=== PATIENT | female | born 1965 | race Caucasian/White ===

== ENCOUNTER 2016-11-24 16:18 | Inpatient (IN) | payer OTHER ==
[~2016-11-24] VITALS: Ht 170.2 cm; Wt 73.5 kg
[~2016-11-24 16:18] MED LIST: BACTO TP; CEPH250C16 PO; CLIN300C2 PO; GABA300C PO; INSU100S22 SUBQ; INSU10SU2 SC; LACT10SO1 PO; SACC250C4 PO; TRAM50TA94 PO
[2016-11-24 17:01] VITALS: BP 148/80
--- NOTE | 2016-11-24 19:15 | NUR ---
PT IS 51/F BIB FRIEND TO ED WITH C/O BLE PITTING EDEMA, REDNESS, PAIN FROM FEET UP TO MID TIB/FIB X 1 WK HYPERGLYCEMIC, POLYDIPSIA, POLYPHAGIA, POLYURIA PT STATES MED HX DM, CIRRHOSIS, FIBROMYALGIA, ARTHRITIS. DENIES N/V/D; SKIN IS PINK/WARM/DRY; AAOX4 WITH EVEN AND STEADY GAIT; LUNGS CLEAR BL; HR EVEN AND REGULAR; PT DENIES ANY FEVER, CP, SOB, OR COUGH AT THIS TIME; PATIENT STATES PAIN OF 8/10 AT THIS TIME; VSS; PATIENT POSITIONED FOR COMFORT; HOB ELEVATED; BEDRAILS UP X2; BED DOWN. ER MD MADE AWARE OF PT STATUS.
[2016-11-24] MEDS ORDERED: NACL 0.9% 1,000 ML IV ONE ×2 (19:23→20:40)
[2016-11-24] MEDS ORDERED: KETOROLAC 30 MG/ML VIAL IVP ONE (19:25)
[2016-11-24] MEDS ORDERED: ONDANSETRON 4 MG/2 ML VIAL IVP ONE (19:25)
[2016-11-24 19:49] LABS: BASOPHILS # (AUTO) 0.1 K/uL (0.00-0.22); BASOPHILS % (AUTO) 2.4 % (0.0-2.0); EOSINOPHILS # (AUTO) 0.2 K/uL (0-0.4); EOSINOPHILS % (AUTO) 5.6 % (0.0-4.0); HEMATOCRIT 35.5 % (36-48); HEMOGLOBIN 11.6 g/dL (12.0-16.0); LYMPHOCYTES # (AUTO) 0.8 K/uL (2.5-16.5); LYMPHOCYTES % (AUTO) 28.7 % (20.5-51.1); MEAN CORPUSCULAR HEMOGLOBIN 33 pg (27-31); MEAN CORPUSCULAR HGB CONC 33 g/dL (33-37); MEAN CORPUSCULAR VOLUME 99 fL (80-94); MONOCYTES # (AUTO) 0.3 K/uL (0.8-1.0); MONOCYTES % (AUTO) 12.1 % (1.7-9.3); NEUTROPHILS # (AUTO) 1.3 K/uL (1.8-7.7); NEUTROPHILS % (AUTO) 51.2 % (42.2-75.2); PLATELET COUNT (AUTO) 93 K/uL (140-450); RED BLOOD CELL COUNT(AUTO) 3.57 MIL/uL (4.20-5.40); RED CELL DISTRIBUTION WIDTH 14.1 % (11.6-13.7); WHITE BLOOD COUNT (AUTO) 2.7 K/uL (4.8-10.8)
[2016-11-24 20:04] LABS: ALBUMIN 2.2 g/dL (3.4-5.0); ANION GAP 11.6 (8-16); CALCIUM 7.7 mg/dL (8.5-10.1); CARBON DIOXIDE 24.8 mmol/L (21-32); CREATININE 0.8 mg/dL (0.6-1.3); POTASSIUM 3.4 mmol/L (3.5-5.1); TOTAL BILIRUBIN 1.1 mg/dL (0.0-1.0); TOTAL PROTEIN, SERUM 7.1 g/dL (6.4-8.2)
[2016-11-24] MEDS ORDERED: MORPHINE SULFATE 4 MG/ML SYR IVP ONE (20:40)
[2016-11-24] MEDS ORDERED: KCL 20 MEQ/WATER INJ PREMIX 100 ML IV ONE (20:40)
[2016-11-24 20:44] LABS: APPEARANCE,URINE CLEAR (CLEAR); BILIRUBIN,URINE NEGATIVE (NEGATIVE); BLOOD, URINE 1+ (NEGATIVE); COLOR,URINE YELLOW (YELLOW); LEUKOCYTE ESTERASE ,URINE NEGATIVE (NEGATIVE); NITRITE, URINE NEGATIVE (NEGATIVE); PH,URINE 5.5 (5.0-9.0); PROTEIN,URINE NEGATIVE (NEGATIVE); UGLUCOSE 3+ (NEGATIVE); UROBILINOGEN,URINE 0.2 EU/dL (0.2 - 1)
[2016-11-24 20:49] LABS: BACTERIA,URINE 1-9 (FEW) /HPF (None Seen); RBC,URINE 3-10 (FEW) /HPF (0-5); SQUAMOUS EPITHELIAL CELL,UR 4-10 (MOD) /LPF (0-3 (FEW))
--- NOTE | 2016-11-24 20:55 | NUR ---
PT HAVING US DONE AT BEDSIDE.
[2016-11-24 21:12] LABS: AMPHETAMINE, URINE NEG. ng/ml (NEG <=1000); BARBITURATE, URINE NEG. ng/ml (NEG <=200); BENZODIAZEPINE, URINE NEG. ng/mL (NEG <=200); CANNABINOID, URINE NEG. ng/mL (NEG <=50); COCAINE, URINE NEG. ng/mL (NEG <=300); OPIATE, URINE NEG. ng/mL (NEG <=2000); PHENCYCLIDINE SCREEN,URINE NEG. ng/mL (NEG <=25)
--- NOTE | 2016-11-24 21:35 | NUR ---
Patient will be admitted to care of DR RODIRGUEZ. Admited to MS. Will go to room 119A. Belongings list completed. Report to VALENTINO LOPEZ.
[2016-11-24] MEDS ORDERED: ONDANSETRON 4 MG/2 ML VIAL IVP PRN (21:40)
[2016-11-24] MEDS ORDERED: MORPHINE SULFATE 2 MG/ML SYR IVP PRN (21:40)
[2016-11-24] MEDS ORDERED: BISACODYL 10 MG SUPP RC PRN (21:40)
[2016-11-24] MEDS ORDERED: cloNIDine 0.1 MG TAB PO PRN (21:40)
[2016-11-24] MEDS ORDERED: ZOLPIDEM 5 MG TAB PO PRN (21:40)
[2016-11-24] MEDS ORDERED: ACETAMINOPHEN 650 MG SUPP RC PRN (21:40)
[2016-11-24] MEDS ORDERED: HYDROcodone/APAP 5/325 MG 1 TAB TAB PO PRN (21:40)
[2016-11-24] MEDS ORDERED: POTASSIUM CHLORIDE 40 MEQ, LIDOCAINE 1% 25 MG in NACL 0.9% 250 ML IV PRN (21:40)
[2016-11-24] MEDS ORDERED: POTASSIUM CHLORIDE 10 MEQ TABER PO PRN (21:40)
[2016-11-24] MEDS ORDERED: MAG SULF 2000 MG/WATER PREMIX 50 ML IV PRN (21:40)
[2016-11-24] MEDS ORDERED: ACETAMINOPHEN 325 MG TAB PO PRN (21:40)
[2016-11-24] MEDS ORDERED: ALUMINUM HYD/MAG/SIMETHICONE 30 ML UDC PO PRN (21:40)
[2016-11-24 22:00] VITALS: BP 156/84
[2016-11-24] MEDS ORDERED: INSULIN LISPRO SLIDING SCALE 100 UNITS/ML VIAL SUBQ PRN (22:00)
[2016-11-24] MEDS ORDERED: DEXTROSE 50% 50 ML SYR IVP PRN (22:00)
--- NOTE | 2016-11-24 22:00 | NUR ---
ADMITTED A 51 Y/O FEMALE FROM ER, VIA [facility] WITH A CHIEF COMPLAINT OF GENERALIZED ABDOMINAL PAIN AND BLE PAIN. RESPIRATION EVEN AND UNLABORED,NO SOB AT THIS TIME. IV ACCESS TO RT AC, GAUGE 18, INFUSING KCL 20MEQ AT 50ML/HR. PT COMPLAINS OF ABDOMINAL PAIN 02/25.WILL MEDICATE ONCE ORDERS VERIFIED. ORIENTED TO CALL LIGHT, BATHROOM, BED, TV, VISITING HOURS. DISCUSSED PLAN OF CARE. PT VERBALIZED UNDERSTANDING. BELONGINGS CHECKED,NO VALUABLES.FALL PRECAUTION IN PLACE. CALL LIGHT WITHIN EASY REACH. WILL CONTINUE TO MONITOR.
--- NOTE | 2016-11-24 22:20 | NUR ---
SPOKE WITH DR. RODRIGUEZ REMINDED TO ORDER CODE STATUS, DIET AND MRSA FOR THIS PT. ORDERED MRSA NARES, NPO EXCEPT MEDS, FULL CODE AND INSTRUCTED THIS AIR AND WATER TESTER TO PUT HIS ORDERS IN THE COMPUTER. REMINDED MD TO ORDER THE CODE STATUS PER PROTOCOL. STATES "OK I WILL ORDER IT TOMORROW, IT'S NOT THAT EMERGENCY." CHARGE NURSE MADE AWARE. ALL OTHER ORDERS NOTED AND CARRIED OUT.
--- NOTE | 2016-11-24 22:25 | NUR ---
SPOKE WITH PATIENT, MADE AWARE OF NPO ORDER. PT GOT UPSET AND STATES SHE'S GOING HOME. PT CLAIMS SHE HASN'T EATEN SINCE THIS MORNING. EXPLAINED TO PATIENT REGARDING IMPORTANCE OF GETTING TREATED MEDICALLY. PT HAS AGREED TO STAY AND REQUESTS TO HAVE SOMETHING FOR PAIN SO SHE CAN SLEEP AND NOT FEEL HUNGRY. ADDRESSED CONCERN. WILL CALL .
--- NOTE | 2016-11-24 22:30 | NUR ---
SPOKE WITH DR. RODRIGUEZ, DISCUSSED PATIENT'S REQUEST. MD ORDERED MORPHINE 4MG IVP Q4H PRN FOR SEVERE PAIN. ORDER NOTED AND CARRIED OUT. PT MADE AWARE, SHE VERBALIZED UNDERSTANDING.
[2016-11-24] MEDS: LACTULOSE 20 GM/30 ML UDC PO SCH (22:44)
[2016-11-25] VITALS: BP 146/80
[2016-11-25] MEDS: MORPHINE SULFATE 4 MG/ML SYR IVP PRN ×4 (00:01→16:42)
[2016-11-25] MEDS: NACL 0.9% 500 ML IV SCH ×3 (02:09→07:28)
[2016-11-25 06:11] LABS: ALBUMIN 2.1 g/dL (3.4-5.0); ANION GAP 9.8 (8-16); CALCIUM 7.1 mg/dL (8.5-10.1); CARBON DIOXIDE 24.1 mmol/L (21-32); CHOL/HDL RATIO 1.9 (1-4.5); CREATININE 0.6 mg/dL (0.6-1.3); POTASSIUM 3.9 mmol/L (3.5-5.1); TOTAL BILIRUBIN 1.2 mg/dL (0.0-1.0); TOTAL PROTEIN, SERUM 6.9 g/dL (6.4-8.2)
[2016-11-25 06:12] LABS: INR 1.1 (0.8-1.2); PARTIAL THROMBOPLASTIN TIME 30.5 secs (22-35.6)
[2016-11-25 06:23] LABS: MAGNESIUM 1.5 mg/dL (1.8-2.4); THYROID STIMULATING HORMONE 2.06 uIU/mL (0.34-3.74)
[2016-11-25] MEDS: BLOOD GLUCOSE MONITORING 1 DEV DEV FS SCH ×4 (06:33→20:56)
[2016-11-25 06:46] LABS: BASOPHILS % (AUTO) 1.4 % (0.0-2.0); EOSINOPHILS # (AUTO) 0.2 K/uL (0-0.4); EOSINOPHILS % (AUTO) 5.3 % (0.0-4.0); HEMATOCRIT 33.1 % (36-48); HEMOGLOBIN 11.2 g/dL (12.0-16.0); LYMPHOCYTES # (AUTO) 0.9 K/uL (2.5-16.5); LYMPHOCYTES % (AUTO) 24.5 % (20.5-51.1); MEAN CORPUSCULAR HEMOGLOBIN 34 pg (27-31); MEAN CORPUSCULAR HGB CONC 34 g/dL (33-37); MEAN CORPUSCULAR VOLUME 99 fL (80-94); MONOCYTES # (AUTO) 0.3 K/uL (0.8-1.0); MONOCYTES % (AUTO) 9.8 % (1.7-9.3); NEUTROPHILS # (AUTO) 2.1 K/uL (1.8-7.7); PLATELET COUNT (AUTO) 81 K/uL (140-450); RED BLOOD CELL COUNT(AUTO) 3.33 MIL/uL (4.20-5.40); WHITE BLOOD COUNT (AUTO) 3.5 K/uL (4.8-10.8)
--- NOTE | 2016-11-25 07:25 | NUR ---
PT AWAKE AND VERBALLY RESPONSIVE. NO S/S OF RESPIRATORY DISTRESS. PT IN STABLE CONDITION. PT REPORTS RELIEF FROM PAIN. ENDORSED TO NEXT SHIFT FOR CONTINUITY OF CARE.
--- NOTE | 2016-11-25 07:26 | NUR ---
PT AWAKE AND ALERT, NO SIGNS OF ACUTE DISTRESS. BOWEL SOUNDS ACTIVE IN ALL 4 QUADRANTS. BOWEL AND BLADDER CONTINENCE. AMBULATORY WITH BRP. SKIN INTACT. IV PATENT AND ASYMPTOMATIC. RE-ORIENTED PT TO HOSPITAL AND TO UNIT, PT VERBALIZED UNDERSTANDING. BED IN LOW POSITION WITH BILATERAL HALF SIDE RAILS UP, CALL LIGHT WITHIN REACH.
[2016-11-25 08:00] VITALS: BP 118/67
--- NOTE | 2016-11-25 08:25 | NUR ---
PT MAGNESIUM IS 1.5. PAGED DR ESTRELLA TO NOTIFY.
--- NOTE | 2016-11-25 08:27 | NUR ---
DR ESTRELLA ORDERED 4000MG MAG RIDER IV, NOTED, WILL CARRY OUT.
[2016-11-25] MEDS: INSULIN NPH HUM/REG INSULIN HM 100 UNIT/ML 10 ML VIAL SQ SCH ×2 (08:53→20:36)
--- NOTE | 2016-11-25 08:54 | NUR ---
PATIENT HAS BEEN SCREENED AND CATEGORIZED HIGH NUTRITION RISK. PATIENT WILL BE SEEN WITHIN 1-2 DAYS OF ADMISSION. 11/25/16-11/26/[address]
[2016-11-25] MEDS: NACL 0.9% 1,000 ML IV SCH ×2 (08:56→18:17)
[2016-11-25] MEDS: LACTULOSE 20 GM/30 ML UDC PO SCH ×2 (08:57→20:31)
[2016-11-25] MEDS: traMADol 50 MG TAB PO SCH ×2 (08:57→20:30)
[2016-11-25] MEDS: GABAPENTIN 300 MG CAP PO SCH ×3 (08:57→16:28)
[2016-11-25] MEDS: MAG SULF 2000 MG/WATER PREMIX 100 ML IV SCH ×2 (09:07→11:36)
--- NOTE | 2016-11-25 12:01 | NUR ---
11/25/16 RD INITIAL ASSESSMENT COMPLETED PLEASE REFER TO NUTRITION ASSESSMENT UNDER CARE ACTIVITY FOR ESTIMATED NUTRITIONAL NEEDS. 1. WHEN MEDICALLY FEASIBLE, INITIATE PO DIET, TO START ON CLEAR LIQUID DIET AND ADVANCE TOLERATED TO 60 GM CONSISTENT CARBOHYDRATE DIET. 2. RD TO FOLLOW-UP 2-3 DAYS; HIGH RISK VALERIA ROBB, CLEM
--- NOTE | 2016-11-25 12:14 | NUR ---
PT SEEN BY DR ESTRELLA, NEW LABS ORDERED AND DIET CHANGED TO CLEAR LIQUID, NOTED, WILL CARRY OUT.
--- NOTE | 2016-11-25 12:23 | NUR ---
CM NOTE INITIAL REVIEW FAXED TO [facility] [phone] [place] [phone]
[2016-11-25 13:12] LABS: MAGNESIUM 2.3 mg/dL (1.8-2.4)
[2016-11-25 16:00] VITALS: BP 134/73
--- NOTE | 2016-11-25 19:17 | NUR ---
PT AWAKE AND ALERT, NO SIGNS OF ACUTE DISTRESS. ENDORSED TO AP RN, RECYCLING COLLECTIONS DRIVER NURSE, FOR CONTINUITY OF CARE.
--- NOTE | 2016-11-25 19:35 | NUR ---
RECEIVED FROM AM RN IN BED AWAKE AND SITTING UP IN BED TALKING WITH SOMEONE ON THE PHONE. NO COMPLAINTS DONE. DX. PANCREATITIS. CALL LIGHT WITH IN REACH AND CARE PLANS FOR THE NIGHT DISCUSES WITH HER.
--- NOTE | 2016-11-25 22:00 | NUR ---
PT. ASSISTED TO RESTROOM BY SLAB STRIPPER TO GO BRP. URINATED X 1. VERBALIZES NEEDS WELL. NO SOB.
--- NOTE | 2016-11-25 23:05 | NUR ---
PT. TALKING ON THE PHONE WITH DAUGHTER. REQUESTED FOR PAIN RELIEVER RT C/O GENERALIZED PAIN. WILL MEDICATE REQUESTED.
[2016-11-26 00:18] VITALS: BP 124/68
[2016-11-26] MEDS: NACL 0.9% 1,000 ML IV SCH ×2 (03:55→14:35)
--- NOTE | 2016-11-26 04:11 | NUR ---
PT. SITTING IN BED . AM PERSONAL HYGIENE FOR HER GOING ON. ABLE TO VERBALIZE SIMPLE NEEDS. NO SOB. DENIES PAIN AT THIS TIME. ABLE TO USE CALL LIGHT FOR HELP.
[2016-11-26] MEDS: BLOOD GLUCOSE MONITORING 1 DEV DEV FS SCH ×4 (05:22→21:06)
--- NOTE | 2016-11-26 05:23 | NUR ---
BLOOD SUGAR CHECK PER FINGERSTICK DONE AT THIS TIME=77 MG/DL. AWAKE AND ALERT. GAVE 120 ML OF APPLE JUICE. GAVE DIABETES EDUCATION REGARDING HYPOGLYCEMIA AT THIS TIME. "OK" .
[2016-11-26 05:36] LABS: BASOPHILS # (AUTO) 0.1 K/uL (0.00-0.22); BASOPHILS % (AUTO) 2.2 % (0.0-2.0); EOSINOPHILS # (AUTO) 0.1 K/uL (0-0.4); EOSINOPHILS % (AUTO) 3.4 % (0.0-4.0); HEMATOCRIT 34.3 % (36-48); HEMOGLOBIN 11.4 g/dL (12.0-16.0); LYMPHOCYTES # (AUTO) 0.7 K/uL (2.5-16.5); LYMPHOCYTES % (AUTO) 21.4 % (20.5-51.1); MEAN CORPUSCULAR HEMOGLOBIN 33 pg (27-31); MEAN CORPUSCULAR HGB CONC 33 g/dL (33-37); MEAN CORPUSCULAR VOLUME 100 fL (80-94); MONOCYTES # (AUTO) 0.4 K/uL (0.8-1.0); MONOCYTES % (AUTO) 12.4 % (1.7-9.3); NEUTROPHILS # (AUTO) 2.2 K/uL (1.8-7.7); NEUTROPHILS % (AUTO) 60.6 % (42.2-75.2); PLATELET COUNT (AUTO) 87 K/uL (140-450); RED BLOOD CELL COUNT(AUTO) 3.45 MIL/uL (4.20-5.40); RED CELL DISTRIBUTION WIDTH 14.5 % (11.6-13.7); WHITE BLOOD COUNT (AUTO) 3.5 K/uL (4.8-10.8)
[2016-11-26 05:49] LABS: ANION GAP 11.7 (8-16); CALCIUM 7.3 mg/dL (8.5-10.1); CARBON DIOXIDE 23.1 mmol/L (21-32); CREATININE 0.5 mg/dL (0.6-1.3); POTASSIUM 3.8 mmol/L (3.5-5.1)
--- NOTE | 2016-11-26 07:28 | NUR ---
SLEEPING . ENDORSED TO THE NEXT RN FOR CONTINUITY OF CARE.
--- NOTE | 2016-11-26 07:29 | NUR ---
PT ASLEEP, NO SIGNS OF ACUTE DISTRESS. BOWEL SOUNDS ACTIVE IN ALL 4 QUADRANTS, BOWEL AND BLADDER CONTINENCE. SKIN INTACT. AMBULATORY WITH BRP. IV PATENT AND ASYMPTOMATIC. WILL RE-ORIENT TO HOSPITAL AND UNIT WHEN PATIENT IS AWAKE. BED IN LOW POSITION WITH BILATERAL HALF SIDE RAILS UP, CALL LIGHT WITHIN REACH.
[2016-11-26] MEDS: MORPHINE SULFATE 4 MG/ML SYR IVP PRN (07:58)
[2016-11-26 08:00] VITALS: BP 108/67
[2016-11-26] MEDS: INSULIN NPH HUM/REG INSULIN HM 100 UNIT/ML 10 ML VIAL SQ SCH ×2 (08:08→21:00)
[2016-11-26] MEDS ORDERED: ACET-2869 PO (08:28)
[2016-11-26] MEDS: LACTULOSE 20 GM/30 ML UDC PO SCH ×2 (08:33→21:06)
[2016-11-26] MEDS: GABAPENTIN 300 MG CAP PO SCH ×3 (08:33→17:02)
[2016-11-26] MEDS: traMADol 50 MG TAB PO SCH ×2 (08:34→21:07)
[2016-11-26] MEDS ORDERED: INSU10SU2 SUBQ (08:38)
[2016-11-26] MEDS ORDERED: INSU100S22 SUBQ (08:38)
[2016-11-26] MEDS ORDERED: PNEUMOCOCCAL VACCINE 23 MCG/0.5 ML VIAL IMVAC PRN (09:00)
--- NOTE | 2016-11-26 09:15 | NUR ---
CM NOTE CONCURRENT REVIEW FAXED TO [facility] [phone] [place] [phone]
--- NOTE | 2016-11-26 11:11 | NUR ---
RECEIVED POSITIVE RESULT FOR MRSA NARES FROM LAB.
[2016-11-26] MEDS: CHLORHEXADINE GLUC 2% CLOTH TP SCH (12:37)
[2016-11-26] MEDS: HYDROcodone/APAP 5/325 MG 1 TAB TAB PO PRN ×2 (12:43→23:45)
--- NOTE | 2016-11-26 12:52 | NUR ---
RE-ASSESSED BLOOD SUGAR AFTER DEXTROSE 50% GIVEN IV PUSH. BLOOD SUGAR IS 101. WILL CONTINUE TO MONITOR.
[2016-11-26] MEDS ORDERED: BACITRACIN OINT 15000 UNITS/30 GM TUBE TP SCH (13:00)
[2016-11-26 16:00] VITALS: BP 112/70
[2016-11-26 16:07] LABS: HEPATITIS A ANTIBODY IGM Negative (Negative); HEPATITIS A ANTIBODY TOTAL Positive (Negative); HEPATITIS B CORE AB TOTAL Negative (Negative); HEPATITIS B CORE, IGM Negative (Negative); HEPATITIS B SURFACE AB Non Reactive (.); HEPATITIS B SURFACE ANTIGEN Negative (Negative); HEPATITIS C VIRUS ANTIBODY <0.1 s/co ratio (0.0-0.9)
--- NOTE | 2016-11-26 17:00 | NUR ---
PT SEEN BY DR ESTRELLA, REPORTED BLOOD SUGAR OF 59 AND THEN BLOOD SUGAR OF 69. RECEIVED NEW ORDERS, NOTED WILL CARRY OUT AND CONTINUE TO MONITOR.
[2016-11-26] MEDS: DEXT 5% /NACL 0.9% 1,000 ML IV SCH (17:45)
--- NOTE | 2016-11-26 19:06 | NUR ---
DUE PO MEDICATIONS GIVEN. TOLERATED WELL.
--- NOTE | 2016-11-26 19:25 | NUR ---
PT ASLEEP, NO SIGNS OF ACUTE DISTRESS. ENDORSED TO TUTOR COORDINATOR NURSE FOR CONTINUITY OF CARE.
--- NOTE | 2016-11-26 19:26 | NUR ---
RECD. RESTING COMFORTABLY SLEEPING IN BED BUT EASILY WAKES UP WHEN NAME CALLED, A/OX4. RESPIRATION EVEN AND UNLABORED. IV OF D5 NS AT 75 ML/HR INFUSING RIGHT FOREARM G18. PLAN OF CARE FOR THE SHIFT DISCUSSED. VERBALIZED UNDERSTANDING. DENIES PAIN 0/10.
--- NOTE | 2016-11-26 20:00 | NUR ---
Patient's Plan of Care was discussed and reviewed with PUBLIC ADDRESS SYSTEM OPERATOR: ASNDRA Srivastava
--- NOTE | 2016-11-26 20:30 | NUR ---
AMBULATED TO BR TO VOID, GAIT STEADY.
[2016-11-26] MEDS: MUPIROCIN 2% OINT 22 GM TUBE TP SCH (21:07)
--- NOTE | 2016-11-26 21:36 | NUR ---
INSULIN 70/30 NOT GIVEN, BLOOD SUGAR, 74. PATIENT IS NPO.
[2016-11-27] VITALS: BP 139/70
--- NOTE | 2016-11-27 | NUR ---
SLEEPING SOUNDLY IN BED, SNORING.
[2016-11-27] MEDS: DEXT 5% /NACL 0.9% 1,000 ML IV SCH ×2 (00:48→06:40)
--- NOTE | 2016-11-27 04:00 | NUR ---
NO COMPLAINT OF ABDOMINAL PAIN 0/10.
[2016-11-27] MEDS: BLOOD GLUCOSE MONITORING 1 DEV DEV FS SCH ×2 (05:54→12:06)
[2016-11-27 06:49] LABS: ANION GAP 8.8 (8-16); CALCIUM 7.2 mg/dL (8.5-10.1); CARBON DIOXIDE 24.9 mmol/L (21-32); CREATININE 0.6 mg/dL (0.6-1.3); POTASSIUM 3.7 mmol/L (3.5-5.1)
[2016-11-27 06:51] LABS: HEMATOCRIT 32.3 % (36-48); HEMOGLOBIN 10.6 g/dL (12.0-16.0); MEAN CORPUSCULAR HEMOGLOBIN 33 pg (27-31); MEAN CORPUSCULAR HGB CONC 33 g/dL (33-37); MEAN CORPUSCULAR VOLUME 99 fL (80-94); PLATELET COUNT (AUTO) 81 K/uL (140-450); RED BLOOD CELL COUNT(AUTO) 3.27 MIL/uL (4.20-5.40); RED CELL DISTRIBUTION WIDTH 14.1 % (11.6-13.7); WHITE BLOOD COUNT (AUTO) 2.4 K/uL (4.8-10.8)
--- NOTE | 2016-11-27 06:55 | NUR ---
CONDITION REMAIN STABLE. WILL ENDORSE TO AM NURSE FOR CONTINUITY OF CARE.
[2016-11-27 07:29] LABS: BAND % (MANUAL) 2 % (0-8); EOSINOPHILS % (MANUAL) 6 % (0-4); LYMPHOCYTES % (MANUAL) 24 % (20-46); MONOCYTES % (MANUAL) 10 % (5-12); NEUTROPHILS % (MANUAL) 58 (43-65)
[2016-11-27 07:30] LABS: PLATELET ESTIMATE SLIGHTLY DECREASED
--- NOTE | 2016-11-27 07:30 | NUR ---
ENDORSED TO VALENTINO CASTILLO FOR CONTINUITY OF CARE.
--- NOTE | 2016-11-27 07:35 | NUR ---
RECEIVED REPORT FROM EVI FLORES. PT IS A/OX4, AMBULATORY, SKIN IS INTACT, IV IS ON THE RT FA, PATENT, INTACT, INFUSING WELL, NO S/S OF RESPIRATORY DISTRESS OR DISCOMFORT NOTED, SAFETY/FALL PRECAUTIONS ARE IN PLACE, DISCUSSED PLAN OF CARE WITH PT, PT VERBALIZED UNDERSTANDING, CALL LIGHT WITHIN REACH, WILL CONTINUE TO MONITOR.
[2016-11-27 08:00] VITALS: BP 111/60
[2016-11-27] MEDS: INSULIN NPH HUM/REG INSULIN HM 100 UNIT/ML 10 ML VIAL SQ SCH (09:00)
[2016-11-27] MEDS: LACTULOSE 20 GM/30 ML UDC PO SCH (09:19)
[2016-11-27] MEDS: traMADol 50 MG TAB PO SCH (09:19)
[2016-11-27] MEDS: GABAPENTIN 300 MG CAP PO SCH ×2 (09:19→13:47)
[2016-11-27] MEDS: MUPIROCIN 2% OINT 22 GM TUBE TP SCH (09:20)
--- NOTE | 2016-11-27 09:20 | NUR ---
DUE MEDICATIONS GIVEN, PT TOLERATED WELL, CALL LIGHT WITHIN REACH, WILL CONTINUE TO MONITOR.
--- NOTE | 2016-11-27 09:42 | NUR ---
CM NOTE CONCURRENT REVIEW FAXED TO [facility] [phone] OCT[place] [phone]
--- NOTE | 2016-11-27 11:20 | NUR ---
PT SLEEPING IN BED AT THIS TIME, CALL LIGHT WITHIN REACH.
--- NOTE | 2016-11-27 13:25 | NUR ---
PT SLEEPING IN BED AT THIS TIME, CALL LIGHT IS WITHIN REACH.
[2016-11-27] MEDS: CHLORHEXADINE GLUC 2% CLOTH TP SCH (13:48)
--- NOTE | 2016-11-27 15:45 | NUR ---
CALLED THE PATIENT'S ROOMMATE STEW AT [phone], I LET HER KNOW THE PATIENT WAS BEING DISCHARGED, STEW SAID SHE WOULD NOT BE ABLE TO ADULT PAROLE OFFICER THE PATIENT, SHE ASKED FOR A TAXI TO BE CALLED AND SHE WOULD PAY FOR IT. THE ADDRESS STEW GAVE ME WAS [address] [place] [id number].
--- NOTE | 2016-11-27 16:00 | NUR ---
I LET THE PATIENT KNOW STEW HAD ASKED ME TO CALL A TAXI FOR HER AND SHE WOULD PAY FOR IT, PATIENT SAID THAT WAS FINE. [employer] WAS CALLED AT [phone].
--- NOTE | 2016-11-27 16:15 | NUR ---
PT DISCHARGE INSTRUCTIONS GIVEN, ID WRIST BAND REMOVED, IV REMOVED CATHETER TIP INTACT. PT STABLE UPON DISCHARGE
== END 2016-11-27 17:06 | disposition home or self-care (01) | DRG 282 ==
LOC: MED 16:18 → MTU 21:35
PROVIDERS: ADMIT Hospitalist; ATTEND Hospitalist
DX: K85.90 Acute pancreatitis without necrosis or infection, unspecified (principal); E11.42 Type 2 diabetes mellitus with diabetic polyneuropathy; K74.60 Unspecified cirrhosis of liver; E11.65 Type 2 diabetes mellitus with hyperglycemia; F17.210 Nicotine dependence, cigarettes, uncomplicated; E44.1 Mild protein-calorie malnutrition; I10 Essential (primary) hypertension; Z68.25 Body mass index [BMI] 25.0-25.9, adult; Z91.14 Patient's other noncompliance with medication regimen
CPT/HCPCS: 36415; 71010; 76705; 80048; 80053; 80305; 81001; 81025; 82140; 82150; 82948; 83036; 83690; 83735; 83880; 84436; 84443; 85025; 85610; 85730; 86704; 86706; 86708; 86709; 86803; 87081; 87340; 96361; 96374; 96375; 97110; 97116; 97530; 99285; J1815; J1885; J2270; J2405; J3475; J3480; J7030; J7042; Q0092